=== PATIENT | female | born 1980 | race Caucasian/White ===

== ENCOUNTER 2024-01-09 12:00 | Emergency (ER) | payer OTHER, SELFPAY ==
[2024-01-09 12:00] VITALS: BP 145/87; PULSE 96; RESP 20; TEMP 37.3; O2SAT 99
[2024-01-09 13:10] LABS: Hematocrit 42.6 % (35.0-49.0); Hemoglobin 14.5 g/dL (12.0-15.0); Mean Corpuscular Hemoglobin 31.6 pg (27.0-31.0); Mean Corpuscular Volume 92.8 fL (78.0-102.0); Mean Platelet Volume 9.9 fl (9.2-11.8); Platelet Count Result 237 K/mm3 (150-420); Red Blood Count 4.59 M/mm3 (4.20-5.40); Red Cell Distribution Width 13.6 % (11.6-14.4)
[2024-01-09 13:16] LABS: White Blood Count 24.1 K/mm3 (4.8-10.8)
[2024-01-09 13:31] LABS: Alanine Aminotransferase 28 U/L (14-59); Albumin Level 3.1 g/dL (3.4-5.0); Alkaline Phosphatase 53 U/L (46-116); Anion Gap 10 mmol/L (4-12); Aspartate Amino Transferase 15 U/L (15-37); Bilirubin,Total 0.5 mg/dL (0.00-1.00); Blood Urea Nitrogen 6 mg/dL (7-18); Calcium 8.9 mg/dL (8.5-10.1); Carbon Dioxide 25 mmol/L (21-32); Chloride 100 mmol/L (98-108); Estimated CRCL calculation 109 ml/min; Estimated Glomerular Filt Rate > 60; Glucose 120 mg/dL (70-99); Osmolality Calculated 278 mOsm/kg (285-295); Potassium 3.8 mmol/L (3.5-5.1); Sodium 135 mmol/L (136-145); Total Protein 7.1 g/dL (6.4-8.2)
--- NOTE | 2024-01-09 13:39 | ED.LOWEXIN ---
HPI - Extremity Injury (Lower) General Chief Complaint: Extremity Injury, Lower Stated Complaint: redness and pain left leg Time Seen by Provider: 01/09/24 12:08 Source: patient and family Mode of arrival: ambulatory Limitations: no limitations History of Present Illness HPI Narrative: this is a 43-year-old female with no significant past medical history presents with 2 small punctate lesions on her left anterior lower leg with area of erythema warmth and tenderness to the anterior surface of her left lower extremity with no calf pain no calf tenderness patient has been having low-grade fever and chills with no chest pain no shortness of breath no dysuria no flank pain no nausea vomiting no diarrhea constipation. Onset (ago): day(s) Related Data Allergies Allergy/AdvReac Type Severity Reaction Status Date / Time No Known Allergies Allergy Verified 01/09/24 13:24 Review of Systems Review of Systems: All systems reviewed & are unremarkable except as noted in HPI and below PMFSH Past Medical History Medical History Patient denies medical problems Exam Const: General: healthy appearing and no acute distress Nutritional Appearance: well nourished Limitations: no limitations Neck: Neck: normal visual inspection, no lymphadenopathy and no meningeal signs Chest: Chest palpation & inspection: normal inspection of the chest Resp: Effort & Inspection: normal respiratory effort Auscultation: clear to auscultation bilaterally Cardio: Rate: regular rate Rhythm: regular rhythm GI: GI Palp: Yes Soft to palpation Auscultation: normal bowel sounds Back/Spine/Pelvis: Back: no CVA tenderness Skin: Other: . Two small punctate lesions anterior left lower leg with an area of erythema approximately 4cm in diameter anterior leg with no calf pain no calf tenderness no swelling of her lower leg. Neuro: General: moves all extremities Course Course Emergency Course: Patient with an elevated white blood cell count consistent with a cellulitis of her left lower leg, a dose of ceftriaxone IV along with IV fluids labs reviewed showed elevated white cell count the rest of her blood work was unremarkable. Vital Signs Vital signs: Vital Signs Temperature 37.3 C 01/09/24 12:00 Pulse Rate 96 01/09/24 12:00 Respiratory Rate 20 01/09/24 12:00 Blood Pressure 145/87 H 01/09/24 12:00 Pulse Oximetry 99 01/09/24 12:00 Oxygen Delivery Room Air 01/09/24 12:00 Temperature 37.3 C 01/09/24 12:00 Pulse Rate 96 01/09/24 12:00 Respiratory Rate 20 01/09/24 12:00 Blood Pressure 145/87 H 01/09/24 12:00 Pulse Oximetry 99 01/09/24 12:00 Oxygen Delivery Room Air 01/09/24 12:00 MDM - Extremity Injury (Lower) Lab Data 01/09/24 12:59 01/09/24 12:59 Labs: Lab Results 01/09/24 01/09/24 Range/Units 12:58 12:59 WBC 24.1 H* (4.8-10.8) K/mm3 RBC 4.59 (4.20-5.40) M/mm3 Hgb 14.5 (12.0-15.0) g/dL Hct 42.6 (35.0-49.0) % MCV 92.8 (78.0-102.0) fL MCH 31.6 H (27.0-31.0) pg MCHC 34.0 (32-36) g/dL RDW 13.6 (11.6-14.4) % Plt Count 237 (150-420) K/mm3 MPV 9.9 (9.2-11.8) fl Immature Gran % (Auto) Not Reportable Neut % (Auto) Not Reportable Lymph % (Auto) Not Reportable [place] % (Auto) Not Reportable Eos % (Auto) Not Reportable Baso % (Auto) Not Reportable Lymph # (Auto) Not Reportable [place] # (Auto) Not Reportable Eos # (Auto) Not Reportable Baso # (Auto) Not Reportable Abs Immat Gran (auto) Not Reportable Absolute Neuts (auto) Not Reportable Absolute Nucleated RBC Not Reportable Nucleated RBC % Not Reportable Platelet Estimate Pending Schistocytes Pending Sodium 135 L (136-145) mmol/L Potassium 3.8 (3.5-5.1) mmol/L Chloride 100 (98-108) mmol/L Carbon Dioxide 25 (21-32) mmol/L Anion Gap 10 (4-12) m
[2024-01-09 13:48] LABS: Band Neutrophils Percent 3 % (0-6); Lymphocytes Absolute Manual 2.65 K/mm3 (1.1-4.5); Lymphocytes Percent Manual 11 % (18-44); Monocytes Absolute Manual 0.48 K/mm3 (0.1-0.90); Monocytes Percent Manual 2 % (3-9); Neutrophils Absolute Manual 20.96 K/mm3 (1.7-7.2); Neutrophils Percent Manual 84 % (46-73); Platelet Estimate Adequate (Adequate); Schistocytes None Seen
[2024-01-09 13:52] LABS: Lactic Acid Reflex 1.4 mmol/L (0.4-2.0)
[2024-01-09] MEDS: TETANUS,DIPHTHERIA,AC PERTUSSIS ADULT 0.5 ML (ADACEL) IM (13:53)
[2024-01-09] MEDS: cefTRIAXone 1 GM, LIDOCAINE HCL 1% LOCAL INJ 2.1 ML IM (13:57)
[2024-01-09 14:00] VITALS: BP 126/80; PULSE 85; RESP 16; TEMP 36.4; O2SAT 97
--- NOTE | 2024-01-16 13:52 | PC.NURSE ---
Final blood culture report, no growth after 5 days, no further action or treatment needed at this time.
== END 2024-01-09 14:10 | disposition home or self-care (01) ==
PROVIDERS: Emergency Provider Emergency Medicine; PCP Physician Assistant
DX: L03.116 Cellulitis of left lower limb (principal); L02.416 Cutaneous abscess of left lower limb; Z23 Encounter for immunization
CPT/HCPCS: 36415; 80053; 83605; 85025; 87040; 90471; 90715; 96372; 99283; J0696